=== PATIENT | male | born 1960 | race African-American/Black ===

== ENCOUNTER 2018-06-08 | Emergency (ER) | payer MEDICAID ==
[~2018-06-08] VITALS: Ht 185.4 cm; Wt 91.6 kg
[2018-06-08] VITALS: BP 169/104
--- NOTE | 2018-06-08 | NUR ---
PATIENT BIB PD TO ER BED 11.
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
[2018-06-08 00:25] VITALS: BP 150/85
--- NOTE | 2018-06-08 00:25 | NUR ---
Patient discharged with v/s stable. Written and verbal after care instructions given and explained. Patient verbalized understanding. Police with in custody. All questions addressed prior to discharge. Advised to follow up with PMD.
== END 2018-06-08 00:25 ==
LOC: MED
DX: Z02.89 Encounter for other administrative examinations (principal); Z98.890 Other specified postprocedural states; Z72.89 Other problems related to lifestyle
CPT/HCPCS: 99283